=== PATIENT | male | born 1970 | race Hispanic/Latino ===

== ENCOUNTER → 2017-11-10 | Day surgery (SDC) | payer OTHER ==
[2017-11-03 10:22] LABS: BASOPHILS # (AUTO) 0.1 (0.0-0.1); BASOPHILS % 0.8 % (0.0-1.0); EOSINOPHILS # (AUTO) 0.1 (0.0-0.4); EOSINOPHILS % 1.9 % (0.0-6.0); HEMATOCRIT 42.1 % (38.2-49.6); HEMOGLOBIN 14.1 g/dL (14.0-18.0); LYMPHOCYTES # (AUTO) 2.3 (1.0-3.2); LYMPHOCYTES % 35.7 % (18.0-39.1); MEAN CORPUSCULAR HEMOGLOBIN 30.1 pg (28-32); MEAN CORPUSCULAR HGB CONC 33.5 g/dL (31-35); MEAN CORPUSCULAR VOLUME 89.8 fL (81-99); MONOCYTES # (AUTO) 0.6 (0.2-0.8); MONOCYTES % 9.9 % (4.4-11.3); NEUTROPHILS # (AUTO) 3.2 (2.1-6.9); NEUTROPHILS % 50.9 % (38.7-80.0); PLATELET COUNT 193 x10e3/uL (140-360); RED BLOOD COUNT 4.69 x10e6/uL (4.3-5.7); RED CELL DISTRIBUTION WIDTH 13.4 % (11.7-14.4)
[2017-11-03 11:01] LABS: ANION GAP 11.7 mmol/L (8-16); BLOOD UREA NITROGEN 15 mg/dL (7-26); BUN/CREATININE RATIO 14 (6-25); CALCIUM 9.5 mg/dL (8.4-10.2); CARBON DIOXIDE 28 mmol/L (22-29); CHLORIDE 101 mmol/L (98-107); CREATININE, SERUM 1.06 mg/dL (0.72-1.25); EST GLOMERULAR FILTRATION RATE > 60 ML/MIN (60-); GLUCOSE 97 mg/dL (74-118); POTASSIUM 4.7 mmol/L (3.5-5.1); SODIUM 136 mmol/L (136-145)
[~2017-11-10] MED LIST: ACETAMINOPHEN 1000 MG/100 ML IV ONE; BUPIVACAINE 0.25%/EPI 30ML SDV INJ ONE; CEFAZOLIN SOD 1 GM VIAL ONE; DEXAMETHASONE SOD PHOS INJ 4 MG/ML VIAL ONE; FENTANYL CITRATE/PF 100MCG/2 ML INJ ONE; KETOROLAC TROMETHAMINE 30 MG/ML VIAL ONE; MIDAZOLAM HCL 2 MG/2 ML VIAL ONE; ONDANSETRON HCL INJ 2 MG/ML VIAL ONE; PROPOFOL IV EMULSION 10 MG/ML 20 ML VIAL ONE; SEVOFLURANE INHAL SOLN 250 ML PEN BTL ONE
--- NOTE | 2017-11-10 09:59 | Operative Report ---
DATE OF PROCEDURE: November 10, 2017 PREOPERATIVE DIAGNOSIS: Umbilical hernia. POSTOPERATIVE DIAGNOSIS: Ventral hernia. PROCEDURE PERFORMED: Repair of ventral and umbilical hernia. ANESTHESIA: General. ESTIMATED BLOOD LOSS: Minimal. DRAINS: None. COMPLICATIONS: None. INDICATIONS AND FINDINGS: Patient is a 47-year-old male who has been complaining of pain in the umbilical area. Physical examination revealed a palpable hernia in the umbilical directly under the umbilicus. INTRAOPERATIVE FINDINGS: The patient had: 1. Umbilical hernia. 2. A supraumbilical hernia that was superior to that through a small 1-cm defect. The umbilical hernia defect was about 1.5 cm. The patient was obese, and because both defects were small, it was decided to repair them individually and not place mesh since the repair was able to be carried out without any tension on the fascia. DESCRIPTION OF PROCEDURE: With the patient lying on the operating table in the supine position and after administration of general anesthesia, he was prepped and draped for repair of an umbilical hernia. An incision was made inferior to the umbilicus. It had to be extended laterally in order to encompass the hernia. The dissection was carried down through the skin and subcutaneous tissue until the hernias were identified. The umbilical hernia was then dissected free from the undersurface of the skin. As the dissection continued, we saw a 2nd smaller defect superior to that with herniation of properitoneal fat also. At this point, we excised the properitoneal fat on both defects and did not enter the abdominal cavity. We went ahead and then repaired both defects primarily with a series of interrupted 0 Ethibond sutures. The repair was strong. There was no significant tension. It was decided not to put a mesh over the repair as both hernias as previously stated were small, and the closure was adequate without tension. At this point, we irrigated the operative field. Sponge and instrument count was pronounced correct. Infiltrated the fascia with 0.25% Marcaine and epinephrine. Closed the wound using 0 Vicryl for the deeper subcutaneous layer and 2-0 Vicryl for the subcuticular plane, and the skin was closed using interrupted 3-0 silk sutures. Sterile dressing was applied. The patient tolerated the procedure well, and taken to the recovery room in stable condition. Job#: [id number]
== END | disposition home or self-care (01) ==
LOC: OR 05:17
PROVIDERS: ATTEND Surgery
DX: K43.9 Ventral hernia without obstruction or gangrene (principal); K42.9 Umbilical hernia without obstruction or gangrene; E66.9 Obesity, unspecified; Z01.810 Encounter for preprocedural cardiovascular examination; Z01.812 Encounter for preprocedural laboratory examination; Z68.32 Body mass index [BMI] 32.0-32.9, adult; Z87.891 Personal history of nicotine dependence
CPT/HCPCS: 36415; 49560; 49585; 80048; 85025; 93005; J0690; J1100; J1885; J2250; J2405